=== PATIENT | male | born 1955 | race American Indian/Alaskan Native ===

== ENCOUNTER 2017-09-03 20:14 | Inpatient (IN) | payer OTHER ==
[2017-09-03] MEDS ORDERED: THORAZINE 25 MG in NACL 0.9% 50 ML IV ONE (20:43)
[2017-09-03] MEDS ORDERED: NACL 0.9% 1000 ML 1,000 ML IV ONE (20:43)
--- NOTE | 2017-09-03 20:48 | Emergency Department Report ---
ED Alcohol HPI - General Chief Complaint: Alcohol Stated Complaint: HICCUPS Time Seen by Provider: 09/03/17 20:35 Source: patient, EMS Mode of arrival: Ambulatory Limitations: No Limitations - History of Present Illness Initial Comments: Patient is 62 years old male history of alcohol abuse, hypertension presented to the ER with a chief complaint of a hiccup For the last 4 days and alcohol INTOXICATION for the last 2 days. Patient denied any chest pain, shortness of breath, nausea or vomiting. No abdominal pain no fever. MD Complaint: alcohol intoxication Last Drink: just [employer] CH[employer]OUNTER Chronic Alcohol Use: Yes Previous Visits for Alcohol Intoxication?: Yes Recent Trauma: No Associated Symptoms: denies other symptoms. denies: nausea, vomiting, syncope, seizure, diaphoresis, tremors, abdominal pain, hematemesis, melena, depression, suicidality Treatments Prior to Arrival: none - Related Data Home Medications Medication Instructions Recorded Confirmed Last Taken Unobtainable 09/03/17 09/03/17 Unknown Allergies Allergy/AdvReac Type Severity Reaction Status Date / Time aspirin Allergy Unknown Verified 09/03/17 20:22 ED Review of Systems ROS: Stated complaint: HICCUPS Other details as noted in HPI Comment: All other systems reviewed and negative Constitutional: denies: chills, fever ENT: denies: throat pain, dental pain Respiratory: denies: cough, shortness of breath, SOB with exertion Cardiovascular: palpitations. denies: chest pain, dyspnea on exertion, orthopnea, edema, syncope, paroxysmal nocturnal dyspnea Gastrointestinal: denies: abdominal pain, nausea, vomiting, diarrhea, constipation, hematemesis, melena, hematochezia Genitourinary: denies: urgency, dysuria, frequency, hematuria, discharge, testicular pain, testicular mass Musculoskeletal: denies: back pain Skin: denies: rash Neurological: denies: headache, weakness, numbness, paresthesias, confusion, abnormal gait Psychiatric: denies: anxiety, depression, auditory hallucinations, visual hallucinations, homicidal thoughts, suicidal thoughts ED Past Medical Hx - Past Medical History Previous Medical History?: Yes Hx Hypertension: Yes Additional medical history: "heart problems" gout - Surgical History Past Surgical History?: No - Social History Smoking Status: Current Every Day Smoker Substance Use Type: Alcohol, Prescribed - Medications Home Medications: Home Medications Medication Instructions Recorded Confirmed Last Taken Type Unobtainable 09/03/17 09/03/17 Unknown History ED Physical Exam - General Limitations: No Limitations General appearance: alert, in no apparent distress, appears intoxicated - Head Head exam: Present: atraumatic, normocephalic, normal inspection - Eye Eye exam: Present: normal appearance, PERRL, EOMI Pupils: Present: normal accommodation - ENT ENT exam: Present: normal exam, normal orophraynx, mucous membranes dry - Neck Neck exam: Present: normal inspection, full ROM. Absent: tenderness, meningismus, lymphadenopathy, thyromegaly - Respiratory Respiratory exam: Present: normal lung sounds bilaterally. Absent: respiratory distress, wheezes, rales, rhonchi, stridor, chest wall tenderness, accessory muscle use, decreased breath sounds, prolonged expiratory - Cardiovascular Cardiovascular Exam: Present: regular rate, normal rhythm, normal heart sounds - GI/Abdominal GI/Abdominal exam: Present: soft, normal bowel sounds. Absent: distended, tenderness, guarding, rebound, rigid, organomegaly, mass, bruit, pulsatile mass , hernia - Extremities Exam Extremities exam: Present: normal inspection, full ROM, normal capillary refill. Absent: tenderness, pedal edema, joint swelling, calf tenderness - Back Exam Back exam: Present: normal inspection, full ROM. Absent: tenderness, CVA tenderness (R), CVA tenderness (L), muscle spasm, paraspinal tenderness, vertebral tenderness - Neurological Exam Neurological exam: Present: alert, oriented X3, CN II-XII intact, normal gait - Skin Skin exam: Present: warm, dry, intact, normal color. Absent: cyanosis, erythema ED Course Vital Signs 09/03/17 09/03/17 09/03/17 20:39 20:51 20:55 Temperature 98.9 F Pulse Rate 102 H Respiratory 16 14 Rate Blood Pressure O2 Sat by Pulse 98 90 Oximetry 09/03/17 09/03/17 09/03/17 21:16 21:30 21:46 Temperature Pulse Rate 96 H 88 115 H Respiratory 14 15 20 Rate Blood Pressure 191/107 191/107 149/81 O2 Sat by Pulse 97 95 Oximetry 09/03/17 09/03/17 22:00 22:16 Temperature Pulse Rate 146 H 173 H Respiratory 16 19 Rate Blood Pressure 149/81 165/97 O2 Sat by Pulse 97 98 Oximetry - Reevaluation(s) Reevaluation #1: 09/03/17 22:46 Patient developed atrial fibrillation with RVR rate of 163, is given Cardizem 10 mg IV push and started on a Cardizem drip at 5 mg/h. ED Medical Decision Making - Lab Data Result diagrams: 09/03/17 20:44 09/03/17 20:44 - EKG Data -: EKG Interpreted by Me EKG shows normal: sinus rhythm Rate: normal - EKG Data Interpretation: no acute changes 09/03/17 22:47 Repeated EKG showed atrial fibrillation with RVR, rate is 163. - Radiology Data Radiology results: report reviewed Referring Physician: PABLO PORRAS Patient Name: RENETTA ROCHA Date of : 1955 Sex: Male Report Date: 2017-09-03 Report Status: Finalized Findings [facility] [address] [place] [address] XRay Report Signed Patient: RENETTA ROCHA MR#: [id number] : 1955 Acct:[id number] Age/Sex: 62 / M ADM Date: 09/03/17 Loc: ED Attending Dr: Ordering Physician: PABLO PORRAS Date of Service: 09/03/17 Procedure(s): XR chest 1V ap Accession Number(s): [id number] cc: PABLO PORRAS Fluoro Time In Minutes: FINAL REPORT EXAM: XR CHEST 1V AP HISTORY: Alcohol Intoxication COMPARISON: None available. FINDINGS: Frontal view(s) of the chest obtained. Cardiac silhouette within normal limits. No gross consolidation or effusion. No pneumothorax. Remote appearing fracture of a lower posterior right rib. IMPRESSION: No grossly acute findings. Transcribed By: LMA Dictated By: CATIA DELGADILLO MD Electronically Authenticated By: CATIA DELGADILLO MD Signed Date/Time: 09/03/171741 DD/ 41 TD/TT: 09/03/171741 - Medical Decision Making Discussed with Dr. Sanders, I presented the patient to him, he agreed to admit the patient to his service. Critical care attestation.: If time is entered above; I have spent that time in minutes in the direct care of this critically ill patient, excluding procedure time. ED Disposition Clinical Impression: Alcohol intoxication, Atrial fibrillation with RVR Disposition: DC-09 OP ADMIT IP TO THIS HOSP Is pt being admited?: Yes Condition: Stable Referrals: BETTY KEYES MD [Primary Care Provider] - 3-5 Days
[2017-09-03 21:13] LABS: Urine Drugs of Abuse Note Disclamer
[2017-09-03 21:20] LABS: Hematocrit 41.9 % (35.5-45.6); Hemoglobin 13.9 gm/dl (11.8-15.2); Mean Corpuscular HGB Conc 33 % (32-34); Mean Corpuscular Hemoglobin 31 pg (28-32); Mean Corpuscular Volume 94 fl (84-94); Platelet Count 231 K/mm3 (140-440); Red Blood Count 4.47 M/mm3 (3.65-5.03); Red Cell Distribution Width 14.5 % (13.2-15.2); White Blood Count 6.9 K/mm3 (4.5-11.0)
[2017-09-03 21:22] LABS: Bilirubin,Urine NEG (Negative); Blood,Urine SM (Negative); Ketones,Urine NEG (Negative); Leukocyte Esterase,Urine NEG (Negative); Mucus,Urine FEW /HPF; Nitrite,Urine NEG (Negative); Protein,Urine <15 mg/dL mg/dL (Negative); Urobilinogen,Urine < 2.0 mg/dL (<2.0)
[2017-09-03 21:28] LABS: Alanine Aminotransferase 30 units/L (7-56); Albumin 4.3 g/dL (3.9-5); Albumin/Globulin Ratio 1.3 %; Alkaline Phosphatase 74 units/L (35-129); Anion Gap 25 mmol/L; BUN/Creatinine Ratio 17; Blood Urea Nitrogen 12 mg/dL (9-20); Calcium 8.7 mg/dL (8.4-10.2); Carbon Dioxide 26 mmol/L (22-30); Chloride 94.7 mmol/L (98-107); Glucose 70 mg/dL (75-100); Lipase 41 units/L (13-60); Sodium 142 mmol/L (137-145); Total Protein 7.6 g/dL (6.3-8.2)
[2017-09-03 21:29] LABS: INR 0.97 (0.87-1.13)
--- NOTE | 2017-09-03 21:45 | XRay Report ---
FINAL REPORT EXAM: XR CHEST 1V AP HISTORY: Alcohol Intoxication COMPARISON: None available. FINDINGS: Frontal view(s) of the chest obtained. Cardiac silhouette within normal limits. No gross consolidation or effusion. No pneumothorax. Remote appearing fracture of a lower posterior right rib. IMPRESSION: No grossly acute findings.
[2017-09-03] MEDS ORDERED: CARDIZEM IV ONE (22:45)
[2017-09-03] MEDS ORDERED: CARDIZEM/D5W 100MG/100ML 100 MG/100 ML BAG IV ONE ×2 (22:45→23:44)
[2017-09-03 22:55] LABS: Basophils % (Manual) 0 % (0.0-1.8); Blastocytes % (Manual) 0 %
[2017-09-03 22:56] LABS: Anisocytosis 1+; Diff Status Complete; Platelet Estimate Consistent w Auto
--- NOTE | 2017-09-03 23:54 | History and Physical Report ---
History of Present Illness Date of examination: 09/03/17 Date of admission: 09/03/17 23:01 Chief complaint: CC Etoh intoxication and hiccups 2 days History of present illness: History of Present Illness Patient is 62 years old male history of alcohol abuse, hypertension presented to the ER with a chief complaint of a hiccups For the last 2 days and alcohol INTOXICATION for the last 2 days. Patient denied any chest pain, shortness of breath, nausea or vomiting. No abdominal pain no fever. Patient in rapid afib while in ER Past Medical History Previous Medical History?: Yes Hx Hypertension: Yes Additional medical history: "heart problems" gout Surgical History Past Surgical History?: No Social History Smoking Status: Current Every Day Smoker Substance Use Type: Alcohol, Prescribed Fam Hx Htn Medications Home Medications: Home Medications Medication Instructions Recorded Confirmed Last Taken Type Unobtainable 09/03/17 09/03/17 Unknown History Review of Systems ROS: Stated complaint: HICCUPS Other details as noted in HPI Comment: All other systems reviewed and negative Constitutional: denies: chills, fever ENT: denies: throat pain, dental pain Respiratory: denies: cough, shortness of breath, SOB with exertion Cardiovascular: palpitations. denies: chest pain, dyspnea on exertion, orthopnea, edema, syncope, paroxysmal nocturnal dyspnea Gastrointestinal: denies: abdominal pain, nausea, vomiting, diarrhea, constipation, hematemesis, melena, hematochezia Genitourinary: denies: urgency, dysuria, frequency, hematuria, discharge, testicular pain, testicular mass Musculoskeletal: denies: back pain Skin: denies: rash Neurological: denies: headache, weakness, numbness, paresthesias, confusion, abnormal gait Psychiatric: denies: anxiety, depression, auditory hallucinations, visual hallucinations, homicidal thoughts, suicidal thoughts Past History Past Medical History: hypertension Medications and Allergies Allergies Allergy/AdvReac Type Severity Reaction Status Date / Time aspirin Allergy Unknown Verified 09/03/17 20:22 Home Medications Medication Instructions Recorded Confirmed Last Taken Type Unobtainable 09/03/17 09/03/17 Unknown History Active Meds: Active Medications Sodium Chloride (Nacl 0.9% 1000 Ml) 1,000 mls @ 250 mls/hr IV ONCE ONE Stop: 09/04/17 00:42 Last Admin: 09/03/17 21:42 Dose: 250 mls/hr Diltiazem HCl (Cardizem/D5w 100mg/100ml) 100 mg in 100 mls @ 5 mls/hr IV TITR ONE; 5 MG/HR PRN Reason: Protocol Stop: 09/04/17 18:44 Exam - Constitutional Vitals: Temp Pulse Resp BP Pulse Ox 98.9 F 131 H 19 165/97 98 09/03/17 20:51 09/03/17 23:30 09/03/17 22:16 09/03/17 23:30 09/03/17 22:16 General appearance: Present: no acute distress, well-nourished - EENT Eyes: Present: PERRL ENT: hearing intact, clear oral mucosa - Neck Neck: Present: supple, normal ROM - Respiratory Respiratory effort: normal Respiratory: bilateral: CTA - Cardiovascular Heart rate: 140 Rhythm: irregularly irregular Heart Sounds: Present: S1 & S2. Absent: rub, click - Extremities Extremities: pulses symmetrical, No edema Peripheral Pulses: within normal limits - Abdominal General gastrointestinal: Present: soft, non-tender, non-distended, normal bowel sounds Male genitourinary: Present: normal - Integumentary Integumentary: Present: clear, warm, dry - Musculoskeletal Musculoskeletal: gait normal, strength equal bilaterally - Psychiatric Psychiatric: appropriate mood/affect, intact judgment & insight - Neurologic Neurologic: CNII-XII intact, moves all extremities Results - Labs CBC & Chem 7: 09/03/17 20:44 09/03/17 20:44 Labs: Laboratory Last Values WBC 6.9 K/mm3 (4.5-11.0) 09/03/17 20:44 RBC 4.47 M/mm3 (3.65-5.03) 09/03/17 20:44 Hgb 13.9 gm/dl (11.8-15.2) 09/03/17 20:44 Hct 41.9 % (35.5-45.6) 09/03/17 20:44 MCV 94 fl (84-94) 09/03/17 20:44 MCH 31 pg (28-32) 09/03/17 20:44 MCHC 33 % (32-34) 09/03/17 20:44 RDW 14.5 % (13.2-15.2) 09/03/17 20:44 Plt Count 231 K/mm3 (140-440) 09/03/17 20:44 Add Manual Diff Complete 09/03/17 20:44 Total Counted 100 09/03/17 20:44 Seg Neutrophils % Flavoring Maker 09/03/17 20:44 Seg Neuts % (Manual) 37.0 % (40.0-70.0) L 09/03/17 20:44 Band Neutrophils % 0 % 09/03/17 20:44 Lymphocytes % (Manual) 54.0 % (13.4-35.0) H 09/03/17 20:44 Reactive Lymphs % (Man) 0 % 09/03/17 20:44 Monocytes % (Manual) 3.0 % (0.0-7.3) 09/03/17 20:44 Eosinophils % (Manual) 6.0 % (0.0-4.3) H 09/03/17 20:44 Basophils % (Manual) 0 % (0.0-1.8) 09/03/17 20:44 Metamyelocytes % 0 % 09/03/17 20:44 Myelocytes % 0 % 09/03/17 20:44 Promyelocytes % 0 % 09/03/17 20:44 Blast Cells % 0 % 09/03/17 20:44 Nucleated RBC % Not Reportable 09/03/17 20:44 Seg Neutrophils # Man 2.6 K/mm3 (1.8-7.7) 09/03/17 20:44 Band Neutrophils # 0.0 K/mm3 09/03/17 20:44 Lymphocytes # (Manual) 3.7 K/mm3 (1.2-5.4) 09/03/17 20:44 Abs React Lymphs (Man) 0.0 K/mm3 09/03/17 20:44 Monocytes # (Manual) 0.2 K/mm3 (0.0-0.8) 09/03/17 20:44 Eosinophils # (Manual) 0.4 K/mm3 (0.0-0.4) 09/03/17 20:44 Basophils # (Manual) 0.0 K/mm3 (0.0-0.1) 09/03/17 20:44 Metamyelocytes # 0.0 K/mm3 09/03/17 20:44 Myelocytes # 0.0 K/mm3 09/03/17 20:44 Promyelocytes # 0.0 K/mm3 09/03/17 20:44 Blast Cells # 0.0 K/mm3 09/03/17 20:44 WBC Morphology Not Reportable 09/03/17 20:44 Hypersegmented Neuts Not Reportable 09/03/17 20:44 Hyposegmented Neuts Not Reportable 09/03/17 20:44 Hypogranular Neuts Not Reportable 09/03/17 20:44 Smudge Cells Not Reportable 09/03/17 20:44 Toxic Granulation Not Reportable 09/03/17 20:44 Toxic Vacuolation Not Reportable 09/03/17 20:44 Dohle Bodies Not Reportable 09/03/17 20:44 Pelger-Huet Anomaly Not Reportable 09/03/17 20:44 Marin Rods Not Reportable 09/03/17 20:44 Platelet Estimate Consistent w auto 09/03/17 20:44 Clumped Platelets Not Reportable 09/03/17 20:44 Plt Clumps, EDTA Not Reportable 09/03/17 20:44 Large Platelets Not Reportable 09/03/17 20:44 Giant Platelets Not Reportable 09/03/17 20:44 Platelet Satelliting Not Reportable 09/03/17 20:44 Plt Morphology Comment Not Reportable 09/03/17 20:44 RBC Morphology Not Reportable 09/03/17 20:44 Dimorphic RBCs Not Reportable 09/03/17 20:44 Polychromasia Not Reportable 09/03/17 20:44 Hypochromasia Not Reportable 09/03/17 20:44 Poikilocytosis Not Reportable 09/03/17 20:44 Anisocytosis 1+ 09/03/17 20:44 Microcytosis Not Reportable 09/03/17 20:44 Macrocytosis Not Reportable 09/03/17 20:44 Spherocytes Not Reportable 09/03/17 20:44 Pappenheimer Bodies Not Reportable 09/03/17 20:44 Sickle Cells Not Reportable 09/03/17 20:44 Target Cells Not Reportable 09/03/17 20:44 Tear Drop Cells Not Reportable 09/03/17 20:44 Ovalocytes Not Reportable 09/03/17 20:44 Helmet Cells Not Reportable 09/03/17 20:44 Mujica-Grabill Bodies Not Reportable 09/03/17 20:44 [place] Rings Not Reportable 09/03/17 20:44 [place] Cells Not Reportable 09/03/17 20:44 Bite Cells Not Reportable 09/03/17 20:44 Crenated Cell Not Reportable 09/03/17 20:44 Elliptocytes Not Reportable 09/03/17 20:44 Acanthocytes (Spur) Not Reportable 09/03/17 20:44 Rouleaux Not Reportable 09/03/17 20:44 Hemoglobin C Crystals Not Reportable 09/03/17 20:44 Schistocytes Not Reportable 09/03/17 20:44 Malaria parasites Not Reportable 09/03/17 20:44 Collin Bodies Not Reportable 09/03/17 20:44 Hem Pathologist Commnt No 09/03/17 20:44 PT 13.4 Sec. (12.2-14.9) 09/03/17 20:44 INR 0.97 (0.87-1.13) 09/03/17 20:44 APTT 32.0 Sec. (24.2-36.6) 09/03/17 20:44 Sodium 142 mmol/L (137-145) 09/03/17 20:44 Potassium 4.0 mmol/L (3.6-5.0) 09/03/17 20:44 Chloride 94.7 mmol/L (98-107) L 09/03/17 20:44 Carbon Dioxide 26 mmol/L (22-30) 09/03/17 20:44 Anion Gap 25 mmol/L 09/03/17 20:44 BUN 12 mg/dL (9-20) 09/03/17 20:44 Creatinine 0.7 mg/dL (0.8-1.5) L 09/03/17 20:44 Estimated GFR > 60 ml/min 09/03/17 20:44 BUN/Creatinine Ratio 17 % 09/03/17 20:44 Glucose 70 mg/dL (75-100) L 09/03/17 20:44 Calcium 8.7 mg/dL (8.4-10.2) 09/03/17 20:44 Total Bilirubin 0.30 mg/dL (0.1-1.2) 09/03/17 20:44 AST 59 units/L (5-40) H 09/03/17 20:44 ALT 30 units/L (7-56) 09/03/17 20:44 Alkaline Phosphatase 74 units/L (35-129) 09/03/17 20:44 Troponin T 0.019 ng/mL (0.00-0.029) 09/03/17 20:44 Total Protein 7.6 g/dL (6.3-8.2) 09/03/17 20:44 Albumin 4.3 g/dL (3.9-5) 09/03/17 20:44 Albumin/Globulin Ratio 1.3 % 09/03/17 20:44 Lipase 41 units/L (13-60) 09/03/17 20:44 Urine Color Yellow (Yellow) 09/03/17 21:02 Urine Turbidity Clear (Clear) 09/03/17 21:02 Urine pH 5.0 (5.0-7.0) 09/03/17 21:02 Ur Specific [place] 1.016 (1.003-1.030) 09/03/17 21:02 Urine Protein <15 mg/dl mg/dL (Negative) 09/03/17 21:02 Urine Glucose (UA) Neg mg/dL (Negative) 09/03/17 21:02 Urine Ketones Neg mg/dL (Negative) 09/03/17 21:02 Urine Blood Sm (Negative) 09/03/17 21:02 Urine Nitrite Neg (Negative) 09/03/17 21:02 Urine Bilirubin Neg (Negative) 09/03/17 21:02 Urine Urobilinogen < 2.0 mg/dL (<2.0) 09/03/17 21:02 Ur Leukocyte Esterase Neg (Negative) 09/03/17 21:02 Urine WBC (Auto) 1.0 /HPF (0.0-6.0) 09/03/17 21:02 Urine RBC (Auto) 1.0 /HPF (0.0-6.0) 09/03/17 21:02 U Epithel Cells (Auto) 1.0 /HPF (0-13.0) 09/03/17 21:02 Urine Mucus Few /HPF 09/03/17 21:02 Urine Opiates Screen Presumptive negative 09/03/17 21:02 Urine Methadone Screen Presumptive negative 09/03/17 21:02 Ur Barbiturates Screen Presumptive negative 09/03/17 21:02 Ur Phencyclidine Scrn Presumptive negative 09/03/17 21:02 Ur Amphetamines Screen Presumptive negative 09/03/17 21:02 U Benzodiazepines Scrn Presumptive negative 09/03/17 21:02 Urine Cocaine Screen Presumptive negative 09/03/17 21:02 U Marijuana (THC) Screen Presumptive negative 09/03/17 21:02 Drugs of Abuse Note Disclamer 09/03/17 21:02 Plasma/Serum Alcohol 0.26 gm% (0-0.07) H 09/03/17 20:40 Short CBC 09/03/17 Range/Units 20:44 WBC 6.9 (4.5-11.0) K/mm3 Hgb 13.9 (11.8-15.2) gm/dl Hct 41.9 (35.5-45.6) % Plt Count 231 (140-440) K/mm3 BMP 09/03/17 20:44 Sodium 142 Potassium 4.0 Chloride 94.7 L Carbon Dioxide 26 BUN 12 Creatinine 0.7 L Glucose 70 L Calcium 8.7 Cardiac Enzymes 09/03/17 Range/Units 20:44 Troponin T 0.019 (0.00-0.029) ng/mL Liver Function 09/03/17 Range/Units 20:44 Total Bilirubin 0.30 (0.1-1.2) mg/dL AST 59 H (5-40) units/L ALT 30 (7-56) units/L Alkaline Phosphatase 74 (35-129) units/L Albumin 4.3 (3.9-5) g/dL Urine 09/03/17 Range/Units 21:02 Urine Color Yellow (Yellow) Urine pH 5.0 (5.0-7.0) Ur Specific [place] 1.016 (1.003-1.030) Urine Protein <15 mg/dl (Negative) mg/dL Urine Glucose (UA) Neg (Negative) mg/dL - Imaging and Cardiology EKG: report reviewed (Afib with rvr) Assessment and Plan Advance Directives: Yes (full code) VTE prophylaxis?: Chemical Plan of care discussed with patient/family: Yes - Patient Problems (1) Atrial fibrillation with RVR Current Visit: Yes Status: Acute Plan to address problem: Cardizem drip initiated.Also PO Cardizem initiated.Also initiated on Eliquis (2) Alcohol intoxication Current Visit: Yes Status: Acute Qualifiers: Complication of substance-induced condition: uncomplicated Qualified Code(s ): F10.920 - Alcohol use, unspecified with intoxication, uncomplicated Plan to address problem: IV fluids and CIWA protocol initiated (3) HTN (hypertension) Current Visit: Yes Status: Chronic Qualifiers: Hypertension type: essential hypertension Qualified Code(s): I10 - Essential (primary) hypertension Plan to address problem: Coreg initiated (4) DVT prophylaxis Current Visit: Yes Status: Acute Plan to address problem: on Lovenox
[2017-09-04] MEDS ORDERED: MORPHINE IV PRN (06:18)
[2017-09-04] MEDS ORDERED: DULCOLAX PR PRN (06:18)
[2017-09-04] MEDS ORDERED: TYLENOL PO PRN (06:18)
[2017-09-04] MEDS ORDERED: PERCOCET 5/325 PO PRN (06:18)
[2017-09-04] MEDS ORDERED: MILK OF MAGNESIA PO PRN (06:18)
[2017-09-04] MEDS ORDERED: ZOFRAN IV PRN (06:18)
[2017-09-04] MEDS ORDERED: ATIVAN IV PRN ×2 (06:24)
[2017-09-04] MEDS ORDERED: ATIVAN PO PRN ×2 (06:24)
[2017-09-04] MEDS ORDERED: D5NS 1,000 ML IV SCH (07:00)
[2017-09-04] MEDS: ELIQUIS PO SCH ×2 (09:41→22:27)
[2017-09-04] MEDS: PEPCID IV SCH ×2 (09:41→22:27)
[2017-09-04] MEDS ORDERED: COREG PO SCH (10:00)
[2017-09-04] MEDS ORDERED: CARDIZEM CD PO SCH ×2 (10:00→14:00)
--- NOTE | 2017-09-04 10:14 | Progress Note ---
Assessment and Plan Assessment and plan: Atrial fibrillation with RVR Cardizem drip and po initiated. Eliquis started as well. Cardiology consultation pending. Follow-up echocardiogram. Check TSH. Alcohol intoxication IV fluids and CIWA protocol initiated HTN (hypertension) Continue Coreg and Cardizem DVT prophylaxis Continued on Lovenox History Interval history: No new issues overnight Hospitalist Physical - Constitutional Vitals: Temp Pulse Resp BP Pulse Ox 98.8 F 91 H 18 173/101 98 09/04/17 07:41 09/04/17 09:41 09/04/17 07:41 09/04/17 09:41 09/04/17 07:41 General appearance: Present: no acute distress, well-nourished - EENT Eyes: Present: PERRL, EOM intact ENT: hearing intact, clear oral mucosa, dentition normal - Neck Neck: Present: supple, normal ROM - Respiratory Respiratory effort: normal Respiratory: bilateral: CTA - Cardiovascular Rhythm: regular Heart Sounds: Present: S1 & S2. Absent: gallop, rub - Extremities Extremities: no ischemia, No edema, Full ROM - Abdominal General gastrointestinal: soft, non-tender, non-distended, normal bowel sounds - Integumentary Integumentary: Present: clear, warm, dry - Neurologic Neurologic: CNII-XII intact, moves all extremities Results - Labs CBC & Chem 7: 09/03/17 20:44 09/03/17 20:44 Labs: Laboratory Last Values WBC 6.9 K/mm3 (4.5-11.0) 09/03/17 20:44 RBC 4.47 M/mm3 (3.65-5.03) 09/03/17 20:44 Hgb 13.9 gm/dl (11.8-15.2) 09/03/17 20:44 Hct 41.9 % (35.5-45.6) 09/03/17 20:44 MCV 94 fl (84-94) 09/03/17 20:44 MCH 31 pg (28-32) 09/03/17 20:44 MCHC 33 % (32-34) 09/03/17 20:44 RDW 14.5 % (13.2-15.2) 09/03/17 20:44 Plt Count 231 K/mm3 (140-440) 09/03/17 20:44 Add Manual Diff Complete 09/03/17 20:44 Total Counted 100 09/03/17 20:44 Seg Neutrophils % Welcome Hostess 09/03/17 20:44 Seg Neuts % (Manual) 37.0 % (40.0-70.0) L 09/03/17 20:44 Band Neutrophils % 0 % 09/03/17 20:44 Lymphocytes % (Manual) 54.0 % (13.4-35.0) H 09/03/17 20:44 Reactive Lymphs % (Man) 0 % 09/03/17 20:44 Monocytes % (Manual) 3.0 % (0.0-7.3) 09/03/17 20:44 Eosinophils % (Manual) 6.0 % (0.0-4.3) H 09/03/17 20:44 Basophils % (Manual) 0 % (0.0-1.8) 09/03/17 20:44 Metamyelocytes % 0 % 09/03/17 20:44 Myelocytes % 0 % 09/03/17 20:44 Promyelocytes % 0 % 09/03/17 20:44 Blast Cells % 0 % 09/03/17 20:44 Nucleated RBC % Not Reportable 09/03/17 20:44 Seg Neutrophils # Man 2.6 K/mm3 (1.8-7.7) 09/03/17 20:44 Band Neutrophils # 0.0 K/mm3 09/03/17 20:44 Lymphocytes # (Manual) 3.7 K/mm3 (1.2-5.4) 09/03/17 20:44 Abs React Lymphs (Man) 0.0 K/mm3 09/03/17 20:44 Monocytes # (Manual) 0.2 K/mm3 (0.0-0.8) 09/03/17 20:44 Eosinophils # (Manual) 0.4 K/mm3 (0.0-0.4) 09/03/17 20:44 Basophils # (Manual) 0.0 K/mm3 (0.0-0.1) 09/03/17 20:44 Metamyelocytes # 0.0 K/mm3 09/03/17 20:44 Myelocytes # 0.0 K/mm3 09/03/17 20:44 Promyelocytes # 0.0 K/mm3 09/03/17 20:44 Blast Cells # 0.0 K/mm3 09/03/17 20:44 WBC Morphology Not Reportable 09/03/17 20:44 Hypersegmented Neuts Not Reportable 09/03/17 20:44 Hyposegmented Neuts Not Reportable 09/03/17 20:44 Hypogranular Neuts Not Reportable 09/03/17 20:44 Smudge Cells Not Reportable 09/03/17 20:44 Toxic Granulation Not Reportable 09/03/17 20:44 Toxic Vacuolation Not Reportable 09/03/17 20:44 Dohle Bodies Not Reportable 09/03/17 20:44 Pelger-Huet Anomaly Not Reportable 09/03/17 20:44 Marin Rods Not Reportable 09/03/17 20:44 Platelet Estimate Consistent w auto 09/03/17 20:44 Clumped Platelets Not Reportable 09/03/17 20:44 Plt Clumps, EDTA Not Reportable 09/03/17 20:44 Large Platelets Not Reportable 09/03/17 20:44 Giant Platelets Not Reportable 09/03/17 20:44 Platelet Satelliting Not Reportable 09/03/17 20:44 Plt Morphology Comment Not Reportable 09/03/17 20:44 RBC Morphology Not Reportable 09/03/17 20:44 Dimorphic RBCs Not Reportable 09/03/17 20:44 Polychromasia Not Reportable 09/03/17 20:44 Hypochromasia Not Reportable 09/03/17 20:44 Poikilocytosis Not Reportable 09/03/17 20:44 Anisocytosis 1+ 09/03/17 20:44 Microcytosis Not Reportable 09/03/17 20:44 Macrocytosis Not Reportable 09/03/17 20:44 Spherocytes Not Reportable 09/03/17 20:44 Pappenheimer Bodies Not Reportable 09/03/17 20:44 Sickle Cells Not Reportable 09/03/17 20:44 Target Cells Not Reportable 09/03/17 20:44 Tear Drop Cells Not Reportable 09/03/17 20:44 Ovalocytes Not Reportable 09/03/17 20:44 Helmet Cells Not Reportable 09/03/17 20:44 Mujica-De[place]old[place] Bodies Not Reportable 09/03/17 20:44 [place] Rings Not Reportable 09/03/17 20:44 Ronaldo Cells Not Reportable 09/03/17 20:44 Bite Cells Not Reportable 09/03/17 20:44 Crenated Cell Not Reportable 09/03/17 20:44 Elliptocytes Not Reportable 09/03/17 20:44 Acanthocytes (Spur) Not Reportable 09/03/17 20:44 Rouleaux Not Reportable 09/03/17 20:44 Hemoglobin C Crystals Not Reportable 09/03/17 20:44 Schistocytes Not Reportable 09/03/17 20:44 Malaria parasites Not Reportable 09/03/17 20:44 Collin Bodies Not Reportable 09/03/17 20:44 Hem Pathologist Commnt No 09/03/17 20:44 PT 13.4 Sec. (12.2-14.9) 09/03/17 20:44 INR 0.97 (0.87-1.13) 09/03/17 20:44 APTT 32.0 Sec. (24.2-36.6) 09/03/17 20:44 Sodium 142 mmol/L (137-145) 09/03/17 20:44 Potassium 4.0 mmol/L (3.6-5.0) 09/03/17 20:44 Chloride 94.7 mmol/L (98-107) L 09/03/17 20:44 Carbon Dioxide 26 mmol/L (22-30) 09/03/17 20:44 Anion Gap 25 mmol/L 09/03/17 20:44 BUN 12 mg/dL (9-20) 09/03/17 20:44 Creatinine 0.7 mg/dL (0.8-1.5) L 09/03/17 20:44 Estimated GFR > 60 ml/min 09/03/17 20:44 BUN/Creatinine Ratio 17 % 09/03/17 20:44 Glucose 70 mg/dL (75-100) L 09/03/17 20:44 Hemoglobin A1c 5.4 % (4-6) 09/04/17 06:28 Calcium 8.7 mg/dL (8.4-10.2) 09/03/17 20:44 Total Bilirubin 0.30 mg/dL (0.1-1.2) 09/03/17 20:44 AST 59 units/L (5-40) H 09/03/17 20:44 ALT 30 units/L (7-56) 09/03/17 20:44 Alkaline Phosphatase 74 units/L (35-129) 09/03/17 20:44 Troponin T 0.019 ng/mL (0.00-0.029) 09/03/17 20:44 Total Protein 7.6 g/dL (6.3-8.2) 09/03/17 20:44 Albumin 4.3 g/dL (3.9-5) 09/03/17 20:44 Albumin/Globulin Ratio 1.3 % 09/03/17 20:44 Lipase 41 units/L (13-60) 09/03/17 20:44 Urine Color Yellow (Yellow) 09/03/17 21:02 Urine Turbidity Clear (Clear) 09/03/17 21:02 Urine pH 5.0 (5.0-7.0) 09/03/17 21:02 Ur Specific [place] 1.016 (1.003-1.030) 09/03/17 21:02 Urine Protein <15 mg/dl mg/dL (Negative) 09/03/17 21:02 Urine Glucose (UA) Neg mg/dL (Negative) 09/03/17 21:02 Urine Ketones Neg mg/dL (Negative) 09/03/17 21:02 Urine Blood Sm (Negative) 09/03/17 21:02 Urine Nitrite Neg (Negative) 09/03/17 21:02 Urine Bilirubin Neg (Negative) 09/03/17 21:02 Urine Urobilinogen < 2.0 mg/dL (<2.0) 09/03/17 21:02 Ur Leukocyte Esterase Neg (Negative) 09/03/17 21:02 Urine WBC (Auto) 1.0 /HPF (0.0-6.0) 09/03/17 21:02 Urine RBC (Auto) 1.0 /HPF (0.0-6.0) 09/03/17 21:02 U Epithel Cells (Auto) 1.0 /HPF (0-13.0) 09/03/17 21:02 Urine Mucus Few /HPF 09/03/17 21:02 Urine Opiates Screen Presumptive negative 09/03/17 21:02 Urine Methadone Screen Presumptive negative 09/03/17 21:02 Ur Barbiturates Screen Presumptive negative 09/03/17 21:02 Ur Phencyclidine Scrn Presumptive negative 09/03/17 21:02 Ur Amphetamines Screen Presumptive negative 09/03/17 21:02 U Benzodiazepines Scrn Presumptive negative 09/03/17 21:02 Urine Cocaine Screen Presumptive negative 09/03/17 21:02 U Marijuana (THC) Screen Presumptive negative 09/03/17 21:02 Drugs of Abuse Note Disclamer 09/03/17 21:02 Plasma/Serum Alcohol 0.26 gm% (0-0.07) H 09/03/17 20:40
--- NOTE | 2017-09-04 11:42 | Consultation ---
History of Present Illness Consult date: 09/04/17 Requesting physician: CAROL GARCIA Consult reason: atrial fibrillation History of present illness: This is a 62-year-old gentleman with history of hypertension and EtOH abuse tobacco abuse has been having hiccups for the last several days and some chest discomfort midsternal nonradiating no aggravating or relieving factors patient on EKG is found with A. fib RVR is placed on Cardizem and Cardizem drip this patient morning converted back to normal sinus rhythm off Cardizem drip patient denies any palpitations of unclear duration of the palpitations. Patient was at [facility] for chest pain in the summertime and an echocardiogram revealed normal LV function with no similar regurgitations. Patient was at [facility] in December and had chest pain showed no obvious ischemia. Patient is not compliant with medications or with drinking Past History Past Medical History: hypertension Past Surgical History: denies: No surgical history Social history: smoking, alcohol abuse Family history: denies: no significant family history Medications and Allergies Allergies Allergy/AdvReac Type Severity Reaction Status Date / Time aspirin Allergy Unknown Verified 09/03/17 20:22 Home Medications Medication Instructions Recorded Confirmed Last Taken Type Unobtainable 09/03/17 09/03/17 Unknown History Active Meds: Active Medications Acetaminophen (Tylenol) 650 mg PO Q4H PRN PRN Reason: Pain MILD(1-3)/Fever >100.5/MCCONNELL Apixaban (Eliquis) 5 mg PO Q12HR JOHNATHAN PRN Reason: Protocol Last Admin: 09/04/17 09:41 Dose: 5 mg Bisacodyl (Dulcolax) 10 mg [place] QDAY PRN PRN Reason: Constipation unrelieved by MOM Carvedilol (Coreg) 3.125 mg PO BID [facility] Last Admin: 09/04/17 09:40 Dose: 3.125 mg Diltiazem HCl (Cardizem Cd) 120 mg PO QDAY [facility] Last Admin: 09/04/17 09:41 Dose: 120 mg Famotidine (Pepcid) 20 mg IV BID [facility] Last Admin: 09/04/17 09:41 Dose: 20 mg Diltiazem HCl (Cardizem/D5w 100mg/100ml) 100 mg in 100 mls @ 5 mls/hr IV TITR ONE; 5 MG/HR PRN Reason: Protocol Stop: 09/04/17 18:44 Dextrose/Sodium Chloride (D5ns) 1,000 mls @ 100 mls/hr IV DIRECT JOHNATHAN Lorazepam (Ativan) 2 mg IV Q1H PRN PRN Reason: CIWA-Ar 8-15 Lorazepam (Ativan) 2 mg PO Q1H PRN PRN Reason: CIWA-Ar 8-15 Lorazepam (Ativan) 4 mg IV Q1H PRN PRN Reason: CIWA-Ar 16-25 Lorazepam (Ativan) 4 mg PO Q1H PRN PRN Reason: CIWA-Ar 16-25 Magnesium Hydroxide (Milk Of Magnesia) 30 ml PO Q4H PRN PRN Reason: Constipation Morphine Sulfate (Morphine) 2 mg IV Q4H PRN PRN Reason: Pain, Moderate (4-6) Ondansetron HCl (Zofran) 4 mg IV Q8H PRN PRN Reason: N/V unrelieved by Reglan Oxycodone/Acetaminophen (Percocet 5/325) 1 tab PO Q6H PRN PRN Reason: Pain, Moderate (4-6) Review of Systems All systems: negative (hpi) Physical Examination Vital Signs Resp Pulse Ox 16 98 09/03/17 20:39 09/03/17 20:39 General appearance: no acute distress, well-nourished HEENT: Positive: PERRL, Mucus Membranes Moist Neck: Positive: neck supple, trachea midline Cardiac: Positive: Reg Rate and Rhythm, S1/S2. Negative: Audible Murmur Lungs: Positive: clear to auscultation, Normal Breath Sounds Neuro: Positive: Grossly Intact Abdomen: Positive: Soft, Active Bowel Sounds. Negative: Tender, Distended Male genitourinary: Positive: normal Skin: Positive: Clear Incision: Cardiac Cath Site Musculoskeletal: No Pain, Normal Range of Motion Extremities: Present: normal. Absent: edema Results 09/03/17 20:44 09/03/17 20:44 Cardiac Enzymes 09/03/17 Range/Units 20:44 AST 59 H (5-40) units/L Coagulation 09/03/17 Range/Units 20:44 PT 13.4 (12.2-14.9) Sec. INR 0.97 (0.87-1.13) APTT 32.0 (24.2-36.6) Sec. CBC 09/03/17 Range/Units 20:44 WBC 6.9 (4.5-11.0) K/mm3 RBC 4.47 (3.65-5.03) M/mm3 Hgb 13.9 (11.8-15.2) gm/dl Hct 41.9 (35.5-45.6) % Plt Count 231 (140-440) K/mm3 Comprehensive Metabolic Panel 09/03/17 Range/Units 20:44 Sodium 142 (137-145) mmol/L Potassium 4.0 (3.6-5.0) mmol/L Chloride 94.7 L (98-107) mmol/L Carbon Dioxide 26 (22-30) mmol/L BUN 12 (9-20) mg/dL Creatinine 0.7 L (0.8-1.5) mg/dL Glucose 70 L (75-100) mg/dL Calcium 8.7 (8.4-10.2) mg/dL AST 59 H (5-40) units/L ALT 30 (7-56) units/L Alkaline Phosphatase 74 (35-129) units/L Total Protein 7.6 (6.3-8.2) g/dL Albumin 4.3 (3.9-5) g/dL - Imaging and Cardiology Stress echo: other (at [facility] 01/03/17- underwent astress test which showed : 15% moderate to severe fixed inferior and inferolateral perfusion defect, consistent with prior myocardial infarction. No scintigraphic evidence of ischemia. Inferior and inferolateral akinesia. ) Echo: report reviewed (02/2017 at [facility] normal lv function ) EKG interpretations - Telemetry EKG Rhythm: Atrial Fibrillation Assessment and Plan Chest plan probable GI in nature New-onset atrial fibrillation were back to sinus rhythm duration less than 24 hours Hypertension Alcohol abuse Tobacco abuse Recommend continuing Cardizem 90 mg 3 times a day patient anticoagulation would be hesitant in this patient given the patient's history of EtOH abuse and noncompliance with medications will repeat echocardiogram for LV function and left atrial size and left scant diet stress test for chest pain inducible atrial fibrillation patient discussed in detail about importance but smoking and E to H abstinence.
[2017-09-04] MEDS: APRESOLINE IV PRN ×2 (13:23→19:59)
[2017-09-04 14:12] LABS: Creatine Kinase MB 2.1 ng/mL (0.0-4.0)
[2017-09-04 14:13] LABS: Creatine Kinase 334 units/L (55-170)
[2017-09-04] MEDS: CARDIZEM PO SCH (22:27)
[2017-09-05] MEDS: CARDIZEM PO SCH (05:30)
[2017-09-05 05:54] LABS: Basophils % (Auto) 1.1 % (0.0-1.8); Hematocrit 45.5 % (35.5-45.6); Hemoglobin 14.7 gm/dl (11.8-15.2); Mean Corpuscular HGB Conc 32 % (32-34); Mean Corpuscular Hemoglobin 30 pg (28-32); Mean Corpuscular Volume 93 fl (84-94); Platelet Count 219 K/mm3 (140-440); Red Cell Distribution Width 14.2 % (13.2-15.2); White Blood Count 5.9 K/mm3 (4.5-11.0)
[2017-09-05 05:56] LABS: Alanine Aminotransferase 26 units/L (7-56); Albumin 3.8 g/dL (3.9-5); Albumin/Globulin Ratio 1.2 %; Alkaline Phosphatase 83 units/L (35-129); Anion Gap 19 mmol/L; BUN/Creatinine Ratio 10; Blood Urea Nitrogen 6 mg/dL (9-20); Calcium 9.1 mg/dL (8.4-10.2); Carbon Dioxide 26 mmol/L (22-30); Chloride 94.2 mmol/L (98-107); Glucose 116 mg/dL (75-100); Potassium 3.5 mmol/L (3.6-5.0); Sodium 136 mmol/L (137-145); Total Protein 7.1 g/dL (6.3-8.2)
[2017-09-05] MEDS ORDERED: LEXISCAN IV ONE ×2 (08:38)
[2017-09-05] MEDS ORDERED: PLAVIX PO SCH (10:00)
--- NOTE | 2017-09-05 10:56 | Progress Note ---
Assessment and Plan Chest pain Abnormal stress test Hypertension Hyperlipidemia Afibrillation new-onset converted to sinus rhythm less than 24 hours Tobacco abuse Alcohol abuse Recommend in view of patient's adverse reaction to aspirin which causes nausea vomiting in view of mildly abnormal stress test will treat medically with Plavix proton inhibitor changed from Cardizem to Lopressor 50 mg twice a day isosorbide dinitrate statin medication patient fails medical therapy may consider and REM at that time. In view of of atrial fibrillation being less than 24 hours we'll treat patient medically and also given that fact of patient' s alcohol abuse and medical noncompliance would not be a candidate for anticoagulation Discussed these results and plan with the patient in detail patient should follow-up with cardiology in 1 week's time Subjective Date of service: 09/05/17 Principal diagnosis: afib Interval history: Patient is chest pain-free Objective Vital Signs Temp Pulse Resp BP BP Pulse Ox 09/05/17 09:11 89 126/83 09/05/17 09:10 90 131/87 09/05/17 09:09 96 H 123/82 09/05/17 09:08 101 H 125/85 09/05/17 09:07 96 H 147/94 09/05/17 09:00 69 09/05/17 08:47 74 147/94 09/05/17 08:00 98.3 F 87 18 150/95 97 09/05/17 05:00 98.5 F 74 18 145/85 99 09/05/17 01:00 70 09/04/17 23:49 98.8 F 98 H 20 120/68 98 09/04/17 20:05 18 09/04/17 19:31 99.1 F 78 18 170/89 95 09/04/17 16:52 98.6 F 75 18 178/90 97 09/04/17 14:48 76 142/83 09/04/17 13:23 91 H 167/100 09/04/17 11:51 98.6 F 88 18 169/103 100 - Physical Examination General: No Apparent Distress HEENT: Positive: PERRL, Mucus Membranes Moist Neck: Positive: neck supple, trachea midline Cardiac: Positive: Regular Rate Lungs: Positive: clear to auscultation Neuro: Positive: Grossly Intact Abdomen: Positive: Soft, Active Bowel Sounds. Negative: Tender, Distended Skin: Positive: Clear Incision: Cardiac Cath Site Musculoskeletal: No Pain, Normal Range of Motion Extremities: Present: normal. Absent: edema - Labs and Meds Cardiac Enzymes 09/04/17 09/05/17 Range/Units 13:34 05:14 AST 34 (5-40) units/L CK-MB (CK-2) 2.1 (0.0-4.0) ng/mL CBC 09/05/17 Range/Units 05:14 WBC 5.9 (4.5-11.0) K/mm3 RBC 4.90 (3.65-5.03) M/mm3 Hgb 14.7 (11.8-15.2) gm/dl Hct 45.5 (35.5-45.6) % Plt Count 219 (140-440) K/mm3 Lymph # 2.2 (1.2-5.4) K/mm3 [place] # 0.5 (0.0-0.8) K/mm3 Eos # 0.3 (0.0-0.4) K/mm3 Baso # 0.1 (0.0-0.1) K/mm3 Comprehensive Metabolic Panel 09/05/17 Range/Units 05:14 Sodium 136 L (137-145) mmol/L Potassium 3.5 L (3.6-5.0) mmol/L Chloride 94.2 L (98-107) mmol/L Carbon Dioxide 26 (22-30) mmol/L BUN 6 L (9-20) mg/dL Creatinine 0.6 L (0.8-1.5) mg/dL Glucose 116 H (75-100) mg/dL Calcium 9.1 (8.4-10.2) mg/dL AST 34 (5-40) units/L ALT 26 (7-56) units/L Alkaline Phosphatase 83 (35-129) units/L Total Protein 7.1 (6.3-8.2) g/dL Albumin 3.8 L (3.9-5) g/dL - Imaging and Cardiology EKG: report reviewed (Afib with rvr) Pharmacologic stress test: report reviewed (09/05/2017 small mild inferolateral ischemia normal LV function) Stress echo: other (at [facility] 01/03/17- underwent astress test which showed : 15% moderate to severe fixed inferior and inferolateral perfusion defect, consistent with prior myocardial infarction. No scintigraphic evidence of ischemia. Inferior and inferolateral akinesia. ) Echo: report reviewed (02/2017 at [facility] normal lv function ), other ( normal LV function normal left atrial size) - Telemetry EKG Rhythm: Sinus Rhythm
[2017-09-05] MEDS ORDERED: LOPRESSOR PO SCH (11:00)
--- NOTE | 2017-09-05 11:43 | Discharge Summary ---
Providers - Providers Date of Admission: 09/03/17 23:01 Date of discharge: 09/05/17 Attending physician: CAROL GARCIA 09/04/17 06:18 Consult to Physician [CONS] Routine Consulting Provider: HENRIQUE HARRIS Reason For Exam: afib/rvr/anticoagulation Place consult to:: [facility] Notified:: a service Phone number called:: [phone] Was contact made?: Yes If yes, spoke with:: scott Time called:: 08:17 Primary care physician: BETTY KEYES Hospitalization Reason for admission: afib Condition: Stable Hospital course: This is a 62-year-old gentleman with history of hypertension, EtOH and tobacco abuse who was admitted through the emergency department with chief complaint of chest pain and hiccups. Patient reported that he had been having hiccups for the last several days prior to admission and some chest discomfort that was midsternal nonradiating with no aggravating or relieving factors. EKG on admission was found to have A. fib RVR . The patient was placed on Cardizem drip and converted back to normal sinus rhythm. Patient was at [facility] for chest pain in the summertime and an echocardiogram revealed normal LV function with no similar regurgitations. Patient was at [place] in December and had chest pain showed no obvious ischemia. Patient is not compliant with medications or with drinking. The patient was seen by cardiology in consultation. The Cardizem drip was discontinued and by mouth Cardizem started. However, Cardizem was changed to Lopressor 50 mg twice a day. Patient underwent echocardiogram and stress thallium. The stress thallium was abnormal. Cardiology felt that in view of of atrial fibrillation being less than 24 hours, patient should be treated medically and also given that fact of patient's alcohol abuse and medical noncompliance would not be a candidate for anticoagulation. Also, patient has adverse reaction to aspirin and will be treated with Plavix. Dedicated discharge time 32 minutes. Disposition: TO HOME OR SELFCARE Time spent for discharge: 32 - Discharge Diagnoses (1) Alcohol intoxication Status: Acute Qualifiers: Complication of substance-induced condition: uncomplicated Qualified Code(s ): F10.920 - Alcohol use, unspecified with intoxication, uncomplicated (2) Atrial fibrillation with RVR Status: Acute (3) DVT prophylaxis Status: Acute (4) HTN (hypertension) Status: Chronic Qualifiers: Hypertension type: essential hypertension Qualified Code(s): I10 - Essential (primary) hypertension Core Measure Documentation - Palliative Care Palliative Care/ Comfort Measures: Not Applicable - Core Measures Any of the following diagnoses?: none Exam - Constitutional Vitals: Temp Pulse Resp BP Pulse Ox 98.3 F 89 18 126/83 97 09/05/17 08:00 09/05/17 09:11 09/05/17 08:00 09/05/17 09:11 09/05/17 08:00 General appearance: Present: no acute distress, well-nourished - EENT Eyes: Present: PERRL ENT: hearing intact, clear oral mucosa - Neck Neck: Present: supple, normal ROM - Respiratory Respiratory effort: normal Respiratory: bilateral: CTA - Cardiovascular Heart Sounds: Present: S1 & S2. Absent: rub, click - Extremities Extremities: pulses symmetrical, No edema Peripheral Pulses: within normal limits - Abdominal General gastrointestinal: Present: soft, non-tender, non-distended, normal bowel sounds Male genitourinary: Present: normal - Integumentary Integumentary: Present: clear, warm, dry - Musculoskeletal Musculoskeletal: gait normal, strength equal bilaterally - Psychiatric Psychiatric: appropriate mood/affect, intact judgment & insight - Neurologic Neurologic: CNII-XII intact, moves all extremities Plan Activity: no restrictions Weight Bearing Status: Full Weight Bearing Diet: regular Follow up with: BETTY KEYES MD [Primary Care Provider] - 3-5 Days PATSY AVINA MD [Staff Physician] - 7 Days Prescriptions: Clopidogrel [Plavix] 75 mg PO QDAY #30 tablet Isosorbide Dinitrate [Isordil Titradose] 20 mg PO BID #60 tablet Metoprolol [Lopressor TAB] 50 mg PO BID #60 tablet Pravastatin [Pravachol] 20 mg PO QHS #30 tablet
[2017-09-05] MEDS: PEPCID IV SCH (11:50)
[2017-09-05] MEDS ORDERED: ISORDIL TITRADOSE PO SCH (12:00)
[2017-09-05 12:08] VITALS: BP 172/97
[2017-09-05] MEDS ORDERED: PRAVACHOL PO SCH (22:00)
--- NOTE | 2017-09-05 22:47 | Treadmill Report ---
NUCLEAR STUDY REASON FOR STUDY: Chest pain. IMAGING PROTOCOL: The patient received 10 mCi of Technetium 99m Tetrofosmin for resting image and 28 mCi of Technetium 99m Tetrofosmin for stress imaging. The imaging for the whole procedure was completed 30-90 minutes following the initial injection of Technetium 99m Tetrofosmin. The SPECT imaging in the 180 degree arc was performed in the right anterior oblique projection. Computerized reconstruction of the images was performed for analysis. IMAGING RESULTS: Normal cavity size from stress to rest. Normal distribution of radionuclide in the anterior, inferior, septal, apical region. There is a mild ischemia in the inferior lateral region seen on stress compared to rest. Gated SPECT EF 57% with no wall motion abnormalities. The patient infused Lexiscan with no EKG changes. The patient maintained sinus rhythm. SUMMARY: 1. Negative Lexiscan EKG. The patient maintained sinus rhythm. 2. The patient has a small mild inferolateral ischemia with gated SPECT EF 57% with no wall motion abnormalities. JOB# [id number] HARRY/SUMIT
== END 2017-09-05 15:43 | disposition home or self-care (01) | DRG 897 ==
LOC: ED 20:14 → 4A 23:01
PROVIDERS: ADMIT Internal Medicine; ATTEND Hospitalist
DX: F10.129 Alcohol abuse with intoxication, unspecified (principal); I48.91 Unspecified atrial fibrillation; Z88.6 Allergy status to analgesic agent; I10 Essential (primary) hypertension; M10.9 Gout, unspecified; F17.200 Nicotine dependence, unspecified, uncomplicated; Y90.9 Presence of alcohol in blood, level not specified
CPT/HCPCS: 36415; 71010; 78452; 80048; 80053; 80307; 80320; 81001; 82550; 82553; 83036; 83690; 84443; 84484; 85007; 85025; 85610; 85730; 93005; 93010; 93017; 93306; 96365; 96375; 99285; A9502; G0480; J0360; J2060; J2785; J3230; J7030

== ENCOUNTER 2017-09-28 11:02 | Emergency (ER) | payer SELFPAY ==
[2017-09-28 11:14] VITALS: BP 156/98
[2017-09-28] MEDS ORDERED: TORADOL IM ONE (13:54)
[2017-09-28] MEDS ORDERED: DELTASONE PO ONE (13:56)
--- NOTE | 2017-09-28 13:56 | Emergency Department Report ---
ED Extremity Problem HPI - General Chief complaint: Extremity Problem,Nontraumatic Stated complaint: L ARM PAIN GOUT Time Seen by Provider: 09/28/17 13:39 Source: patient Mode of arrival: Ambulatory Limitations: No Limitations - History of Present Illness Initial comments: Patient is a 62-year-old male with a history of gout and hypertension who presents to ED complaining of left hand pain 3 days. Patient states he is having a gout flareup in his hand and wrist joint hurts to touch. Patient states the knees flareup usually occurs after the said some pains and patient states he had pain for the last 3 days. Patient states he did not injure or have any trauma to the hand. Patient states he states to medication for blood pressure but does not take medication due to the fact that he does not have a primary care physician in 2 to hand trying get some good insurance. He denies fevers/chills/nausea/vomiting/abdominal pain/chest pain or shortness of breath or any other problems. MD Complaint: extremity pain - Related Data Previous Rx's Medication Instructions Recorded Last Taken Type Clopidogrel [Plavix] 75 mg PO QDAY #30 tablet 09/05/17 Unknown Rx Isosorbide Dinitrate [Isordil 20 mg PO BID #60 tablet 09/05/17 Unknown Rx Titradose] Metoprolol [Lopressor TAB] 50 mg PO BID #60 tablet 09/05/17 Unknown Rx Pravastatin [Pravachol] 20 mg PO QHS #30 tablet 09/05/17 Unknown Rx Allopurinol [Zyloprim] 100 mg PO QDAY #40 tablet 09/28/[address] (Nf) 50 mg PO BID #30 tablet. 09/28/17 Unknown Rx predniSONE [Deltasone] 20 mg PO QDAY #5 tab 09/28/17 Unknown Rx Allergies Allergy/AdvReac Type Severity Reaction Status Date / Time aspirin Allergy Unknown Verified 09/03/17 20:22 ED Review of Systems ROS: Stated complaint: L ARM PAIN GOUT Other details as noted in HPI Constitutional: denies: chills, fever Eyes: denies: eye pain, eye discharge, vision change ENT: denies: ear pain, throat pain Respiratory: denies: cough, shortness of breath, wheezing Cardiovascular: denies: chest pain, palpitations Endocrine: no symptoms reported Gastrointestinal: denies: abdominal pain, nausea, diarrhea Genitourinary: denies: urgency, dysuria Musculoskeletal: denies: back pain, joint swelling, arthralgia Skin: denies: rash, lesions Neurological: denies: headache, weakness, paresthesias Psychiatric: denies: anxiety, depression Hematological/Lymphatic: denies: easy bleeding, easy bruising ED Past Medical Hx - Past Medical History Previous Medical History?: Yes Hx Hypertension: Yes Hx Congestive Heart Failure: No Hx Diabetes: No Hx Arthritis: Yes (Gout) Hx Asthma: No Hx COPD: No Additional medical history: "heart problems" gout - Surgical History Past Surgical History?: Yes Additional Surgical History: skull fracture at age 3 years - Social History Smoking Status: Current Every Day Smoker Substance Use Type: Alcohol - Medications Home Medications: Home Medications Medication Instructions Recorded Confirmed Last Taken Type Clopidogrel [Plavix] 75 mg PO QDAY #30 tablet 09/05/17 Unknown Rx Isosorbide Dinitrate [Isordil 20 mg PO BID #60 tablet 09/05/17 Unknown Rx Titradose] Metoprolol [Lopressor TAB] 50 mg PO BID #60 tablet 09/05/17 Unknown Rx Pravastatin [Pravachol] 20 mg PO QHS #30 tablet 09/05/17 Unknown Rx Allopurinol [Zyloprim] 100 mg PO QDAY #40 tablet 09/28/[address] (Nf) 50 mg PO BID #30 tablet.dr 09/28/17 Unknown Rx predniSONE [Deltasone] 20 mg PO QDAY #5 tab 09/28/17 Unknown Rx ED Physical Exam - General Limitations: No Limitations General appearance: alert, in no apparent distress - Head Head exam: Present: atraumatic, normocephalic - Eye Eye exam: Present: normal appearance - ENT ENT exam: Present: mucous membranes moist - Neck Neck exam: Present: normal inspection - Respiratory Respiratory exam: Present: normal lung sounds bilaterally. Absent: respiratory distress - Cardiovascular Cardiovascular Exam: Present: regular rate, normal rhythm. Absent: systolic murmur, diastolic murmur, rubs, gallop - GI/Abdominal GI/Abdominal exam: Present: soft, normal bowel sounds - Rectal Rectal exam: Present: deferred - Extremities Exam Extremities exam: Present: normal inspection - Expanded Upper Extremity Exam Left General: Present: normal inspection Shoulder Exam: Present: normal inspection, full ROM. Absent: tenderness, swelling Upper Arm exam: Present: normal inspection, full ROM. Absent: tenderness, swelling Elbow exam: Present: normal inspection, full ROM. Absent: tenderness, swelling Forearm Wrist exam: Present: normal inspection, tenderness. Absent: swelling Hand Wrist exam: Present: full ROM (with pain), tenderness, swelling (mild), erythema. Absent: laceration, ecchymosis, deformity, dislocation Hand L/R Back: 1 - erythematous, warm, tender to palpation Neuro motor exam: Present: wrist extension intact Neurosensory exam: Present: 2-point discrimination Vascular: Present: normal capillary refill. Absent: vascular compromise, Pallo - Back Exam Back exam: Present: normal inspection, full ROM - Neurological Exam Neurological exam: Present: alert, oriented X3 - Psychiatric Psychiatric exam: Present: normal affect, normal mood - Skin Skin exam: Present: warm, dry, intact, normal color. Absent: rash ED Course Vital Signs 09/28/17 11:12 Temperature 98.8 F Pulse Rate 80 Respiratory 18 Rate Blood Pressure 156/98 O2 Sat by Pulse 100 Oximetry ED Medical Decision Making - Medical Decision Making 62-year-old male presents for a gouty arthritis of the left hand joints. ED course: Patient received indomethacin, prednisone and pain medication ED I discussed with the patient that I will prescribe some gout medication for him which he can take to prevent flareups. I discussed with the patient once his insurance is active he needs to follow up with the primary care for proper management of his gout. Vital signs are stable, patient is in no acute distress. L Hand was neurovascularly intact, no signs of trauma, lacerations or bleeding. I discussed the patient I will refer him to several clinics where he can get care. Critical care attestation.: If time is entered above; I have spent that time in minutes in the direct care of this critically ill patient, excluding procedure time. ED Disposition Clinical Impression: Acute gouty arthritis Disposition: TO HOME OR SELFCARE Is pt being admited?: No Does the pt Need Aspirin: No Condition: Stable Instructions: Acute Gouty Arthritis (ED), Arthralgia (ED) Additional Instructions: Make sure to follow up with the primary care physician as discussed. Take all your medications as you've been prescribed. If you have any worsening symptoms or develop new symptoms please return to ED immediately. Prescriptions: Allopurinol [Zyloprim] 100 mg PO QDAY #[address] (Nf) 50 mg PO BID #30 tablet. predniSONE [Deltasone] 20 mg PO QDAY #5 tab Referrals: BETTY KEYES MD [Primary Care Provider] - 3-5 Days [facility] [Outside] - 3-5 Days [facility] [Outside] - 3-5 Days Forms: Work/School Release Form(ED) Time of Disposition: 14:12
[2017-09-28] MEDS ORDERED: ZYLOPRIM PO ONE (14:00)
[2017-09-28] MEDS ORDERED: INDOCIN PO ONE (14:09)
== END 2017-09-28 15:24 | disposition home or self-care (01) ==
LOC: ED 11:02
DX: M10.9 Gout, unspecified (principal); I10 Essential (primary) hypertension; F17.200 Nicotine dependence, unspecified, uncomplicated; Z88.6 Allergy status to analgesic agent
CPT/HCPCS: 96372; 99282; J1885; J7512

== ENCOUNTER 2018-11-21 09:41 | Emergency (ER) | payer SELFPAY ==
[2018-11-21] MEDS ORDERED: IBUPROFEN PO ONE (10:38)
[2018-11-21] MEDS ORDERED: COLCHICINE PO ONE (10:38)
[2018-11-21] MEDS ORDERED: NORCO 7.5/325 PO ONE (10:38)
[2018-11-21] MEDS ORDERED: DECADRON IM ONE (10:39)
--- NOTE | 2018-11-21 10:50 | Emergency Department Report ---
ED Extremity Problem HPI - General Chief complaint: Extremity Problem,Nontraumatic Stated complaint: PAIN (L) HAND ARM/HAND SWOLLEN Time Seen by Provider: 11/21/18 10:24 Source: patient Mode of arrival: Ambulatory Limitations: No Limitations - History of Present Illness Initial comments: Patient is a 63-year-old -[place] male who was noted swelling to the left wrist and hand for the past 2-3 days. This progressively worsening. Patient does have a history of gout. Patient states that the pain is a 10 out of 10 and has radiation of the pain into his left upper extremity to his elbow. Patient denies any fevers chills nausea vomiting at this time. He denies any direct trauma. Patient states that pain is worse with movement and even when clothes or the air touches his skin. Severity scale (0 -10): 10 - Related Data Previous Rx's Medication Instructions Recorded Last Taken Type Clopidogrel [Plavix] 75 mg PO QDAY #30 tablet 09/05/17 Unknown Rx Isosorbide Dinitrate [Isordil 20 mg PO BID #60 tablet 09/05/17 Unknown Rx Titradose] Metoprolol [Lopressor TAB] 50 mg PO BID #60 tablet 09/05/17 Unknown Rx Pravastatin [Pravachol] 20 mg PO QHS #30 tablet 09/05/17 Unknown Rx Allopurinol [Zyloprim] 100 mg PO QDAY #40 tablet 09/28/[address] (Nf) 50 mg PO BID #30 tablet. 09/28/17 Unknown Rx predniSONE [Deltasone] 20 mg PO QDAY #5 tab 09/28/17 Unknown Rx Colchicine 0.6 mg PO BID #6 capsule 11/21/18 Unknown Rx HYDROcodone/APAP 5-325 [[place] 1 each PO Q6HR PRN #15 tablet 11/21/18 Unknown Rx 5/325] predniSONE [Deltasone] 20 mg PO QDAY #5 tab 11/21/18 Unknown Rx Allergies Allergy/AdvReac Type Severity Reaction Status Date / Time aspirin Allergy Unknown Verified 09/03/17 20:22 ED Review of Systems ROS: Stated complaint: PAIN (L) HAND ARM/HAND SWOLLEN Other details as noted in HPI Comment: All other systems reviewed and negative ED Past Medical Hx - Past Medical History Previous Medical History?: Yes Hx Hypertension: Yes Hx Congestive Heart Failure: No Hx Diabetes: No Hx Arthritis: Yes (Gout) Hx Asthma: No Hx COPD: No Additional medical history: "heart problems" gout - Surgical History Past Surgical History?: Yes Additional Surgical History: skull fracture at age 3 years - Social History Smoking Status: Current Every Day Smoker Substance Use Type: None - Medications Home Medications: Home Medications Medication Instructions Recorded Confirmed Last Taken Type Clopidogrel [Plavix] 75 mg PO QDAY #30 tablet 09/05/17 Unknown Rx Isosorbide Dinitrate [Isordil 20 mg PO BID #60 tablet 09/05/17 Unknown Rx Titradose] Metoprolol [Lopressor TAB] 50 mg PO BID #60 tablet 09/05/17 Unknown Rx Pravastatin [Pravachol] 20 mg PO QHS #30 tablet 09/05/17 Unknown Rx Allopurinol [Zyloprim] 100 mg PO QDAY #40 tablet 09/28/[address] (Nf) 50 mg PO BID #30 tablet.dr 09/28/17 Unknown Rx predniSONE [Deltasone] 20 mg PO QDAY #5 tab 09/28/17 Unknown Rx Colchicine 0.6 mg PO BID #6 capsule 11/21/18 Unknown Rx HYDROcodone/APAP 5-325 [[place] 1 each PO Q6HR PRN #15 tablet 11/21/18 Unknown Rx 5/325] predniSONE [Deltasone] 20 mg PO QDAY #5 tab 11/21/18 Unknown Rx ED Physical Exam - General Limitations: No Limitations General appearance: alert, in no apparent distress - Head Head exam: Present: atraumatic, normocephalic - Eye Eye exam: Present: normal appearance - ENT ENT exam: Present: mucous membranes moist - Neck Neck exam: Present: normal inspection - Respiratory Respiratory exam: Present: normal lung sounds bilaterally. Absent: respiratory distress, wheezes, rales, rhonchi - Cardiovascular Cardiovascular Exam: Present: regular rate, normal rhythm. Absent: systolic murmur, diastolic murmur, rubs, gallop - GI/Abdominal GI/Abdominal exam: Present: soft, normal bowel sounds - Rectal Rectal exam: Present: deferred - Extremities Exam Extremities exam: Present: tenderness, joint swelling (issues left wrist shows diffuse swelling erythema and mild warmth. He has full range of motion however this is painful. Patient noted on history that he has radiation of the pain up to the elbow. There is no tenderness on palpation to the forearm elbow or bicep region. There is no extension of the erythema.). Absent: normal inspection - Back Exam Back exam: Present: normal inspection - Neurological Exam Neurological exam: Present: alert, oriented X3 - Psychiatric Psychiatric exam: Present: normal affect, normal mood - Skin Skin exam: Present: warm, dry, intact, normal color. Absent: rash ED Medical Decision Making - EKG Data -: EKG Interpreted by Me - EKG Data 11/21/18 10:48 EKG was performed in triage. Patient's had a rate of 116 sinus tachycardia with normal intervals and normal axis. There is no ST segment elevations or depressions. Time of interpretation is 10 AM. - Medical Decision Making Patient with a exacerbation of gouty arthritis. Patient was treated with colchicine steroids and pain management and the patient will be discharged home. Critical care attestation.: If time is entered above; I have spent that time in minutes in the direct care of this critically ill patient, excluding procedure time. ED Disposition Clinical Impression: Gout attack Qualifiers: Gout site: wrist Gout etiology: idiopathic Laterality: left Qualified Code(s): M10.032 - Idiopathic gout, left wrist Disposition: TO HOME OR SELFCARE Is pt being admited?: No Does the pt Need Aspirin: No Condition: Stable Instructions: Acute Gouty Arthritis (ED) Referrals: ERIC CONN MD [Primary Care Provider] - 3-5 Days Time of Disposition: 10:50
== END 2018-11-21 11:09 | disposition home or self-care (01) ==
LOC: ED 09:41
DX: M10.032 Idiopathic gout, left wrist (principal); I10 Essential (primary) hypertension; M19.90 Unspecified osteoarthritis, unspecified site; F17.200 Nicotine dependence, unspecified, uncomplicated; Z79.899 Other long term (current) drug therapy; Z88.6 Allergy status to analgesic agent
CPT/HCPCS: 93005; 93010; 96372; 99282; J1100